=== PATIENT | male | born 1950 | race Caucasian/White ===

== ENCOUNTER → 2023-07-29 07:34 | Outpatient (REF) | payer MEDICARE, SELFPAY | LOC: EMG 07:34 | PROVIDERS: ATTENDING PHYSICIAN Nurse Practitioner | DX: R20.0 Anesthesia of skin (principal); R20.2 Paresthesia of skin | CPT/HCPCS: 95886; 95911 ==

== ENCOUNTER → 2023-09-07 11:59 | Outpatient (REF) | payer OTHER, SELFPAY | LOC: RAD 11:59 | PROVIDERS: ATTENDING PHYSICIAN Nurse Practitioner | DX: M51.26 Other intervertebral disc displacement, lumbar region (principal) | CPT/HCPCS: 72110 ==

== ENCOUNTER → 2023-10-10 07:46 | Outpatient (REF) | payer OTHER, SELFPAY | LOC: MRI 3T 07:46 | PROVIDERS: ATTENDING PHYSICIAN Nurse Practitioner | DX: R29.898 Other symptoms and signs involving the musculoskeletal system (principal) | CPT/HCPCS: 72148 ==